=== PATIENT | male | born 1970 | race African-American/Black ===

== ENCOUNTER 2023-11-08 07:21 | Emergency (ER) | payer MEDICAID ==
[~2023-11-08] VITALS: Ht 180.3 cm; Wt 85.0 kg
[2023-11-08 07:27] VITALS: BP 146/83; PULSE 70; RESP 18; TEMP 98.5; O2SAT 98
[2023-11-08] MEDS ORDERED: AMOX1TAB16 MT (10:06)
[2023-11-08] MEDS ORDERED: NAPR500T7 MT (10:06)
[2023-11-08] MEDS: AMOXICILLIN/POTASSIUM CLAVULANATE 875/125MG TAB PO ONE (10:31)
== END 2023-11-08 10:34 | disposition home or self-care (01) ==
LOC: ER 07:21
DX: S61.214A Laceration without foreign body of right ring finger without damage to nail, initial encounter (principal); S61.216A Laceration without foreign body of right little finger without damage to nail, initial encounter; X58.XXXA Exposure to other specified factors, initial encounter; Y93.89 Activity, other specified; Y92.89 Other specified places as the place of occurrence of the external cause; Y99.8 Other external cause status
CPT/HCPCS: 73130; 99283; Z7610

== ENCOUNTER 2024-03-25 09:34 | Emergency (ER) | payer MEDICAID, OTHER ==
[~2024-03-25] VITALS: Ht 190.5 cm; Wt 85.0 kg
[~2024-03-25 09:34] MED LIST: AMOX1TAB16 MT; NAPR-1486 MT
[2024-03-25 09:53] VITALS: BP 154/73; PULSE 85; RESP 16; TEMP 98.2; O2SAT 100
== END 2024-03-25 10:54 | disposition home or self-care (01) ==
LOC: ER 09:34
DX: S01.81XA Laceration without foreign body of other part of head, initial encounter (principal); W22.03XA Walked into furniture, initial encounter; Y93.01 Activity, walking, marching and hiking; Y92.89 Other specified places as the place of occurrence of the external cause; Y99.8 Other external cause status
CPT/HCPCS: 99281; Z7610

== ENCOUNTER 2024-10-18 08:09 | Emergency (ER) | payer OTHER ==
[2024-10-18 08:14] VITALS: PULSE 66; RESP 18; O2SAT 98
== END 2024-10-18 08:38 | disposition left against medical advice (07) ==
LOC: ER 08:09
DX: K08.89 Other specified disorders of teeth and supporting structures (principal); Z53.21 Procedure and treatment not carried out due to patient leaving prior to being seen by health care provider